=== PATIENT | female | born 1960 | race Caucasian/White ===

== ENCOUNTER → 2017-01-05 | Outpatient (CLI) | payer OTHER ==
--- NOTE | ~2017-01-05 | MR113 ---
[facility]. [facility] A Service of [facility] RADIOLOGY TEXT RESULTS PATIENT: LADONNA MACE LOCATION: [facility] : 62 UNIT #: [id number] AGE: [address]: Liban Garner MD SEX: F ORDER DR: [id number] [address] [address] [id number] O MR#: [id number] Acc #: [id number] NAME: LADONNA MACE : 1960 SEX: F STUDY DATE/TIME: 01/05/2017 13:53 UNIT: [facility] ROOM: STUDY DESCRIPTION: MR Lumbar Wo Contrast Attending Physician: Liban Garner M.D. Referring Physician: Liban Garner M.D. Ordering Physician: Liban Garner M.D. Primary Care Physician: Liban Garner M.D. MRI CENTER REPORT This report is preliminary unless electronic signature is present. EXAM Lumbar spine MRI, no contrast. DATE OF STUDY 01/05/2017 PROCEDURE Routine unenhanced lumbar spine MRI. COMPARISON None. CLINICAL HISTORY Chronic low back pain. Increasing low back pain and right leg sciatica. FINDINGS Alignment is within normal limits. There is some mild degenerative marrow signal changes particularly around the 5-1 disc, but there is no marrow infiltration or replacement. Bone marrow signal is otherwise normal and the distal cord and conus are normal in position and appearance. At 1-2 and 2-3, the disc, canal and foramina are normal. At L3-4, there is a left lateral disc protrusion. There is no canal stenosis and the right foramen is normal, but there is mild left foraminal narrowing. At L4-5, there is a disc bulge and right paracentral protrusion and annular tear. There is borderline canal stenosis and perhaps borderline right and no left foraminal stenosis. At 5-1, there is disc and endplate change and facet arthropathy. There is no canal stenosis. There is [id number] left and moderate right STS. [facility] A Service of [facility] RADIOLOGY TEXT RESULTS PATIENT: LADONNA MACE LOCATION: [facility] : 62 UNIT #: [id number] AGE: [address]: Liban Garner MD SEX: F ORDER DR: foraminal stenosis. IMPRESSION There is no substantial canal stenosis at any level. There is right 5-1 foraminal narrowing and left 3-4 foraminal narrowing. See above for details. Dictated by... Costa Yeh M.D. THIS IS AN ELECTRONICALLY VERIFIED REPORT Costa Yeh M.D. at 01/07/2017 4:27 PM TEV/pc TD: 01/06/2017 13:08 JOB #: [id number] MRI CENTER REPORT Page 1 of 1
== END | disposition home or self-care (01) ==
LOC: SMRI 12-15 11:00
DX: M54.16 Radiculopathy, lumbar region (principal); M62.81 Muscle weakness (generalized)
CPT/HCPCS: 72148